=== PATIENT | female | born 1960 | race Caucasian/White ===

== ENCOUNTER → 2024-06-08 11:22 | Outpatient (REF) | payer OTHER, SELFPAY | LOC: HWWDC 11:22 | PROVIDERS: ATTENDING PHYSICIAN Nurse Practitioner Adult Health | DX: Z12.31 Encounter for screening mammogram for malignant neoplasm of breast (principal) | CPT/HCPCS: 77063; 77067 ==

== ENCOUNTER 2025-04-28 06:21 | Day surgery (SDC) | payer OTHER, SELFPAY ==
--- NOTE | 2025-04-28 07:52 | CM ---
CM was updated by PAT regarding patient's upcoming procedure. Cm reviewed medical records. CM will remain available as needed.
[2025-04-28 12:22] VITALS: BP 116/70
[2025-04-28] MEDS: TYLENOL 1000 MG PO (12:41)
[2025-04-28] MEDS: NORMOSOL-R/PLASMALYTE-A 1000 IV (12:41)
[2025-04-28 14:47] VITALS: BP 87/51
[2025-04-28 15:00] VITALS: BP 98/61
[2025-04-28 15:15] VITALS: BP 101/63
== END 2025-04-28 15:50 | disposition home or self-care (01) ==
LOC: SDS 06:21
PROVIDERS: ATTENDING PHYSICIAN Surgery
DX: L02.411 Cutaneous abscess of right axilla (principal)
CPT/HCPCS: 38500; 10060; 87070; 87075; 87205; 88304; 88305

== ENCOUNTER → 2025-05-07 10:03 | Outpatient (REF) | payer OTHER, SELFPAY | LOC: WDC 10:03 | PROVIDERS: ATTENDING PHYSICIAN Obstetrics & Gynecology; FAMILY PHYSICIAN Nurse Practitioner Adult Health | DX: N63.31 Unspecified lump in axillary tail of the right breast (principal) | CPT/HCPCS: 76642; 77062; 77066 ==

== ENCOUNTER 2025-07-29 06:22 | Day surgery (SDC) | payer OTHER, SELFPAY | END 2025-07-29 16:01 | disposition home or self-care (01) | LOC: GI 06:22 | PROVIDERS: ATTENDING PHYSICIAN Internal Medicine Gastroenterology | DX: Z12.11 Encounter for screening for malignant neoplasm of colon (principal); Q43.8 Other specified congenital malformations of intestine; D12.3 Benign neoplasm of transverse colon; Z86.0100 Personal history of colon polyps, unspecified | CPT/HCPCS: 45385; 88305 ==